=== PATIENT | female | born 1950 | race Caucasian/White ===

== ENCOUNTER 2017-01-16 11:57 | Emergency (ER) | payer MEDICARE, OTHER ==
[~2017-01-16] VITALS: Ht 160 cm; Wt 105.0 kg
[~2017-01-16 11:57] MED LIST: CELE100 PO; DEME50TA OR; GLUC500C56 PO; PRIL20TA2 PO; ROSU10 PO; SYNT88TA PO; TRAM50TA PO; XARE10TA OR
[2017-01-16 12:00] VITALS: BP 188/81; PULSE 66; RESP 20; TEMP 97.9; O2SAT 97
[2017-01-16] MEDS ORDERED: BENA25CA4 PO (12:15)
[2017-01-16] MEDS ORDERED: SYNT88TA PO (12:15)
[2017-01-16] MEDS ORDERED: OMEP20TA PO (12:15)
[2017-01-16] MEDS ORDERED: ROSU10 PO (12:15)
[2017-01-16] MEDS ORDERED: CELE100C PO (12:15)
[2017-01-16] MEDS ORDERED: PROP10TA6 PO (12:15)
[2017-01-16] MEDS ORDERED: LIDOCAINE HCL 1% 50 ML VIAL INFIL ONE (12:30)
--- NOTE | 2017-01-16 12:30 | PD ---
HPI Chief Complaint: Fall Time Seen by Provider: 12:24 Travel History International Travel<30 days: No Contact w/Intl Traveler<30days: No Traveled to known affect area: No History of Present Illness HPI 66-year-old female that presents to the ED for evaluation of fall. Patient has an injury to her mouth after she tripped and fell and landed class TV stand. Per patient the corner of the TV stand hit her on the face and she has a cut to the left inner mouth. Per patient she has pain on the left side of the face otherwise no pain. Patient per pain is 4 out of 10 and gets worse when she opens her mouth. She denies any prior injuries. No neck pain or back pain. She is up-to-date with her tetanus in 2011. Pain does not radiate. Pain stays mainly on the left side of the mouth. No chest pain or shortness of breath. No neck pain or back pain. No leg pain. She has not taken anything for this. Injury occurred about an hour ago. PFSH Past Medical History Arthritis: Yes Blood Disorders: No Cancer: No Cardiovascular Problems: No High Cholesterol: Yes Diabetes: No Diminished Hearing: No Endocrine: Yes Gastrointestinal Disorders: Yes GERD: Yes Genitourinary: Yes (BLADDER STIMULATOR) Immune Disorder: No Musculoskeletal: Yes (ESSENTIAL TREMORS) Neurologic: No Psychiatric: No Reproductive: No Respiratory: No Thyroid Disease: Yes Tetanus Vaccination: < 5 Years Influenza Vaccination: Yes ?: Not Past Surgical History Abdominal Surgery: Yes (CHOLECYSTECTOMY) Body Medical Devices: BLADDER STIM. Genitourinary Surgery: Yes (BLADDER STIMULATOR IN HIPS) Gynecologic Surgery: Yes (HYSTERECTOMY) Joint Replacement: Yes (JASON. KNEES) Pacemaker: No Other Surgery: Yes Social History Alcohol Use: Yes (1 DRINK PER MONTH) Tobacco Use: No Substance Use: No Allergies-Medications (Allergen,Severity, Reaction): Coded Allergies: Aspirin (Verified Allergy, Severe, THROAT,EYES HIVES, 01/16/17) Dilaudid (Verified Allergy, Severe, ITCHING, 01/16/17) Morphine (Verified Allergy, Severe, AGITATION, 01/16/17) Red Dyes - Various (Unverified Allergy, Severe, Rash, 01/16/17) Toradol (Verified Allergy, Severe, THROAT,EYES HIVES, 01/16/17) Valium (Verified Allergy, Severe, ITCHING, 01/16/17) Reported Meds & Prescriptions Reported Meds & Active Scripts Active Lortab (Hydrocodone-Acetaminophen) 5-325 Mg Tab 1 Tab PO Q6H PRN Amoxicillin 875 Mg Tab 875 Mg PO BID 7 Days Reported Benadryl Allergy (Diphenhydramine HCl) 25 Mg Cap 25 Mg PO HS Propranolol (Propranolol HCl) 10 Mg Tab 15 Mg PO Q12HR Omeprazole 20 Mg Tab 20 Mg PO DAILY Celebrex (Celecoxib) 100 Mg Cap 100 Mg PO DAILY Synthroid (Levothyroxine Sodium) 88 Mcg Tab 88 Mcg PO DAILY Crestor (Rosuvastatin Calcium) 10 Mg Tab 10 Mg PO DAILY Review of Systems Except as stated in HPI: all other systems reviewed are Neg Physical Exam Narrative GENERAL: SKIN: Warm and dry. HEAD: Atraumatic. Normocephalic. EYES: Pupils equal and round. No scleral icterus. No injection or drainage. ENT: No nasal bleeding or discharge. Mucous membranes pink and moist. Tongue is midline. No uvula deviation. Patient has no obvious sign of injury to the dentures but she does have a 1 cm laceration to the left corner of the inner lip. Opens up whenever she opens her mouth. Tender to touch with minimal bleeding noted. No other lacerations noted. NECK: Trachea midline. No JVD. CARDIOVASCULAR: Regular rate and rhythm. No murmurs, S3, S4. RESPIRATORY: No accessory muscle use. Clear to auscultation. Breath sounds equal bilaterally. GASTROINTESTINAL: Abdomen soft, non-tender, nondistended. Hepatic and splenic margins not palpable. MUSCULOSKELETAL: Extremities without clubbing, cyanosis, or edema. No obvious deformities. Full range of motion of the upper and lower extremities bilaterally. 2+ pulses bilaterally. No lumbar, thoracic, cervical spine tenderness to palpation. NEUROLOGICAL: Awake and alert. No obvious cranial nerve deficits. Motor grossly within normal limits. Five out of 5 muscle strength in the arms and legs. Normal speech. PSYCHIATRIC: Appropriate mood and affect; insight and judgment normal. Data Data Last Documented VS Vital Signs Date Time Temp Pulse Resp B/P Pulse Ox O2 Delivery O2 Flow Rate FiO2 01/16/17 12:00 97.9 66 20 188/81 97 Orders Lidocaine 1% Inj (50 Ml) (Xylocaine 1% I (01/16/17 12:30) Ct Facial Bones W/O Iv Cont (01/16/17 ) MDM Medical Decision Making Medical Screen Exam Complete: Yes Emergency Medical Condition: Yes Medical Record Reviewed: Yes Interpretation(s) CT facial bones negative for acute bony injury Differential Diagnosis Laceration versus abrasion versus facial injury versus bruise versus contusion Narrative Course 66-year-old female that presents to the ED for evaluation of facial injury. Patient was properly examined and was found to have signs and symptoms consistent with appears to be a contusion to the face. CT was ordered. After explained procedure to the patient and she agreed to it laceration was repaired as stated in procedure note. Patient was told the sutures will come off on their own in about 2-[address] showed no sign of acute disease. Patient was reassured. Patient was told that sutures will come off on their own in 2-4 weeks. Given prescription for amoxicillin for infection prophylaxis, tylenol or motrin OTC for pain. ice. F/u with PCP. See ED if worst. Procedures Procedure Narrative LACERATION LOCATION: Left inner lip LENGTH: 1 similar NUMBER OF STITCHES/MARY: 6 sutures REPAIR: The area of the laceration was prepped with Betadine and sterilely draped. The laceration was infiltrated with 1% Xylocaine. The wound was copiously irrigated and explored without evidence of foreign body, tendon injury or neurovascular injury. The wound was closed using 4-0 Vycril. This was a 1 layer repair. A sterile dressing was applied. The patient was advised to keep the dressing clean and dry. Patient tolerated the procedure well. Diagnosis Primary Impression: Facial injury Qualified Code: S09.93XA - Facial injury, initial encounter Additional Impression: Laceration of lip Qualified Code: S01.511A - Laceration of lip, initial encounter Patient Instructions: General Instructions Additional Instructions: Take medication as prescribed. Follow-up with PCP. See ED worsening symptoms. Sutures will come off on their own in the next 2-4 weeks. Med/Other Pt SpecificInfo: Prescription(s) given Scripts Amoxicillin 875 Mg Sbi211 Mg PO BID 7 Days Ref 0 Prov:Chase Beltre MD 01/16/17 Disposition: 01 DISCHARGE HOME Condition: Stable Siddharth Paz Jan 16, 2017 12:30 Siddharth Paz Jan 16, 2017 12:30
[2017-01-16] MEDS ORDERED: AMOX875T PO (13:09)
[2017-01-16] MEDS ORDERED: HYDR-3533 PO (13:10)
[2017-01-16 13:43] VITALS: BP 149/75
--- NOTE | 2017-01-16 14:09 | RADRPT ---
EXAM DATE/TIME: 01/16/2017 12:48 [facility] COMPARISON: No previous studies available for comparison. INDICATIONS : Trauma. Fall. Left facial pain. Left side of mouth laceration. RADIATION DOSE: 29.80 CTDIvol (mGy) MEDICAL HISTORY : Gastroesophageal reflux disease. SURGICAL HISTORY : Cholecystectomy. Hysterectomy. ENCOUNTER: Initial ACUITY: 1 day PAIN SCORE: 4/10 LOCATION: Left facial TECHNIQUE: Volumetric scanning of the facial bones was performed. Using automated exposure control and adjustme nt of the mA and/or kV according to patient size, radiation dose was kept as low as reasonably achiev able to obtain optimal diagnostic quality images. DICOM format image data is available electronicall y for review and comparison. FINDINGS: ORBITS: The orbital and infraorbital osseous structures are intact. The retroconal structures have a normal configuration. No radiopaque foreign bodies are seen. NASAL BONE: The nasal bone and maxillary spine are intact ZYGOMATIC ARCHES: Symmetric without evidence of fracture. SINUSES: The maxillary, ethmoid and frontal sinuses are intact. Mild mucosal thickening is noted within the le ft sphenoid sinus. No air-fluid levels seen. There is a small mucous retention cyst within left maxi llary sinus. NASAL CAVITY: The nasal septum is intact and midline. The lacrimal ducts are intact. SOFT TISSUES: There is infiltration and air within the subcutaneous tissues of the left cheek which likely is relat ed to trauma in this location. No subcutaneous fluid collection to suggest abscess is noted. INTRACRANIAL: No intracranial air seen. CRIBIFORM PLATE: Grossly intact. CONCLUSION: 1. Infiltration and air within the subcutaneous tissues of the left cheek which likely is related to trauma in this location. No subcutaneous fluid collection to suggest abscess is noted. 2. Small mucous retention cyst within left maxillary sinus. 3. Mild mucosal thickening within left sphenoid sinus. 4. No facial bone fracture. Erik Chaves MD on January 16, 2017 at 14:01 Board Certified Radiologist. This report was verified electronically.
== END 2017-01-16 13:44 | disposition home or self-care (01) ==
LOC: PHEFT 11:57
DX: S01.511A Laceration without foreign body of lip, initial encounter (principal); W01.190A Fall on same level from slipping, tripping and stumbling with subsequent striking against furniture, initial encounter
CPT/HCPCS: 12011; 70486